=== PATIENT | female | born 1950 | race Caucasian/White ===

== ENCOUNTER 2018-01-12 19:38 | Emergency (ER) | payer MEDICARE, BC ==
--- NOTE | 2018-01-12 20:27 | EDM.PDOC ---
ED HPI GENERAL MEDICAL PROBLEM - General Chief Complaint: Laceration Stated Complaint: HURT RIGHT ARM LAUNCHING A BOAT Time Seen by Provider: 01/12/18 20:05 Source of Information: Reports: Patient, Family History Limitations: Reports: No Limitations - History of Present Illness INITIAL COMMENTS - FREE TEXT/NARRATIVE: 67-year-old female caught both of her forearms and hands into a spinning uncontrolled handle from a wench on a boat trailer. She has several contusions and lacerations to both forearms and hands. The left hand has a 3.5 cm laceration in the web of the thumb and second finger, there are 2 small lacerations on the right small finger and a skin tear on the right forearm. She has some discomfort with movement of the hands and wrists. Onset: Sudden Duration: Hour(s): (Within the last few hours) Left Hand Pain Score (Numeric/FACES): 7 - Related Data Allergies Allergy/AdvReac Type Severity Reaction Status Date / Time metronidazole [From Flagyl] Allergy Itching Verified 01/12/18 19:58 Home Meds: Home Meds Aspirin [Adult Aspirin] 81 mg PO DAILY 01/12/18 [History] Calcium Carbonate [Calcium] 600 mg PO DAILY 01/12/18 [History] Lisinopril/Hydrochlorothiazide [Lisinopril-Hctz 10-12.5 mg Tab] 1 tab PO DAILY 01/12/18 [History] Multivitamin [Multi-Vitamin Daily] 1 tab PO DAILY 01/12/18 [History] Past Medical History HEENT History: Reports: Cataract, Impaired Vision, Other (See Below) Other HEENT History: torn retna Cardiovascular History: Reports: Hypertension QUALITY CONTROL HEAD History: Reports: Musculoskeletal History: Reports: Other (See Below) Other Musculoskeletal History: bunionectomy bilateral - Infectious Disease History Infectious Disease History: Reports: Chicken Pox, Measles, Mumps, Shingles - Past Surgical History GI Surgical History: Reports: Appendectomy, Colonoscopy Female Surgical History: Reports: Hysterectomy Social & Family History - Tobacco Use Smoking Status *Q: Never Smoker Second Hand Smoke Exposure: No - Caffeine Use Caffeine Use: Reports: Coffee, Tea - Alcohol Use Days Per Week of Alcohol Use: 7 Number of Drinks Per Day: 2 Total Drinks Per Week: 14 - Recreational Drug Use Recreational Drug Use: No ED ROS GENERAL - Review of Systems Review Of Systems: See Below Constitutional: Denies: Fever Respiratory: Denies: Shortness of Breath, Cough Cardiovascular: Denies: Chest Pain GI/Abdominal: Denies: Abdominal Pain, Nausea, Vomiting Neurological: Denies: Dizziness, Headache Psychiatric: Reports: Anxiety ED EXAM, SKIN/RASH Exam: See Below Exam Limited By: No Limitations General Appearance: Alert, Mild Distress (Patient is fairly uncomfortable with her several injuries of the extremities) Respiratory/Chest: No Respiratory Distress, Lungs Clear Cardiovascular: Regular Rate, Rhythm Extremities: Other (Exam is otherwise limited to the arms. Patient has a 4 cm laceration somewhat irregular through the webspace of the thumb and index finger on the left hand. She also has 2 small lacerations on the small finger of the right hand. There is a 4 cm V-shaped skin tear on the right forearm.) Course - Vital Signs Last Recorded V/S: Last Vital Signs Temp 97.7 F 01/12/18 20:07 Pulse 86 01/12/18 20:07 Resp 16 01/12/18 20:07 BP 140/86 01/12/18 20:07 Pulse Ox 97 01/12/18 20:07 - Orders/Labs/Meds Orders: Active Orders 24 hr Category Date Time Status Forearm 2V Rt [CR] Stat Exams 01/12/18 20:56 Taken Hand Comp Min 3V Bi [CR] Stat Exams 01/12/18 20:56 Taken DME for Discharge [COMM] Stat Oth 01/12/18 21:38 Ordered Meds: Medications Discontinued Medications Generic Name Dose Route Start Last Admin Trade Name Dina PRN Reason Stop Dose Admin Bacitracin 1 dose 01/12/18 20:28 01/12/18 21:14 Bacitracin Oint 1 Gm TOP 01/12/18 20:29 1 dose ONETIME ONE Administration Lidocaine HCl 5 ml 01/12/18 20:19 01/12/18 20:34 Xylocaine-Mpf 1% INJECT 01/12/18 20:20 5 ml ONETIME ONE Administration - Re-Assessments/Exams Free Text/Narrative Re-Assessment/Exam: 01/13/18 01:38 The laceration on the left hand was anesthetized with 1% lidocaine, flushed thoroughly with saline and closed with 6 4-0 Ethilon sutures. The skin tear was repaired with Steri-Strips. The rest of her wounds and contusions were dressed and bandaged. An x-ray of both hands and the right forearm were obtained that showed arthritis but no fractures. She was given a sling to help her elevate the left hand, and the sutures can be removed in 8 days. She was also given 6 hydrocodone to use sparingly for pain control. Departure - Departure Time of Disposition: 22:57 Disposition: Home, Self-Care 01 Condition: Good Clinical Impression: Laceration of hand Qualifiers: Encounter type: initial encounter Foreign body presence: without foreign body Laterality: left Qualified Code(s): S61.412A - Laceration without foreign body of left hand, initial encounter Skin tear of forearm without complication Qualifiers: Encounter type: initial encounter Laterality: right Qualified Code(s): S51.811A - Laceration without foreign body of right forearm, initial encounter Contusion of hand(s) Qualifiers: Encounter type: initial encounter Laterality: unspecified laterality Qualified Code(s): S60.229A - Contusion of unspecified hand, initial encounter - Discharge Information Instructions: Laceration Care, Adult, [id number] Referrals: PCP,None [Primary Care Provider] - Forms: ED Department Discharge Care Plan Goals: Cool compresses to bruised areas will help for the next 48 hours. Sutures can be removed in 9 days, next . Increase activity as tolerated and keep wounds covered and clean while healing. Return sooner if concerns of infection or not healing satisfactorily. Take one half to one pain pill every 3-4 hours as needed for extra pain relief. - My Orders Last 24 Hours: My Active Orders 01/12/18 20:56 Forearm 2V Rt [CR] Stat Hand Comp Min 3V Bi [CR] Stat 01/12/18 21:38 DME for Discharge [COMM] Stat - Assessment/Plan Last 24 Hours: My Active Orders 01/12/18 20:56 Forearm 2V Rt [CR] Stat Hand Comp Min 3V Bi [CR] Stat 01/12/18 21:38 DME for Discharge [COMM] Stat
[2018-01-12] MEDS ORDERED: Bacitracin Oint 1 GM U/D Packet TOP ONE (20:28)
--- NOTE | 2018-01-13 09:04 | CR ---
Right hand There is diffuse demineralization. There is a fracture involving the proximal metaphysis of the proxi mal phalanx fifth finger. There is mild displacement. No additional fractures are seen. There are deg enerative changes involving the radial aspect of the wrist. Impression: 1. Fracture proximal phalanx fifth finger.
--- NOTE | 2018-01-13 09:05 | CR ---
Right forearm There is diffuse demineralization. There is no fracture of the radius or ulna. Impression: 1. No acute findings.
== END 2018-01-12 22:00 | disposition home or self-care (01) ==
LOC: JP.ED 19:38
DX: S61.412A Laceration without foreign body of left hand, initial encounter (principal); S51.811A Laceration without foreign body of right forearm, initial encounter; S61.216A Laceration without foreign body of right little finger without damage to nail, initial encounter; Z88.8 Allergy status to other drugs, medicaments and biological substances; Z79.82 Long term (current) use of aspirin; Z79.899 Other long term (current) drug therapy; I10 Essential (primary) hypertension; Y29.XXXA Contact with blunt object, undetermined intent, initial encounter
CPT/HCPCS: 12002; 73090-26-RT; 73090-RT; 731302650; 73130-50; 99284-25